=== PATIENT | male | born 1980 | race Caucasian/White ===

== ENCOUNTER 2016-11-21 23:34 | Emergency (ER) | payer OTHER, MEDICAID ==
[2016-11-22 00:02] VITALS: BP 117/75; BMI 23.7
[2016-11-22 00:26] LABS: BASOPHILS % (AUTO) 0.4 % (0.2-1.0); EOSINOPHILS # (AUTO) 0.3 x10^3/uL (0.0-0.2); HEMOGLOBIN 12.2 g/dL (13.5-18.0); LYMPHOCYTES # (AUTO) 1.4 X10^3/uL (1.3-2.9); LYMPHOCYTES % (AUTO) 18.7 % (21.0-51.0); MEAN CORPUSCULAR HEMOGLOBIN 35.3 pg (27.0-34.0); MEAN CORPUSCULAR HGB CONC 34.8 g/dL (33.0-35.0); MEAN CORPUSCULAR VOLUME 101.5 fL (80.0-100.0); MEAN PLATELET VOLUME 9.2 fL (7.4-11.0); MONOCYTES # (AUTO) 0.5 x10^3/uL (0.3-0.8); MONOCYTES % (AUTO) 6.6 % (0.0-13.0); NEUTROPHILS # (AUTO) 5.1 x10^3/uL (2.2-4.8); NEUTROPHILS % (AUTO) 70.3 % (42.0-75.0); PLATELET COUNT 114 X10^3/uL (150.0-450.0); RED BLOOD COUNT 3.44 X10^6/uL (4.7-6.0); RED CELL DISTRIBUTION WIDTH 12.9 % (11.6-16.5); WHITE BLOOD COUNT 7.3 X10^3/uL (3.6-10.0)
--- NOTE | 2016-11-22 00:27 | DR.GENAD ---
HPI - PCP Primary Care Physician: nfd - Complaint/Symptoms Chief Complaint Doctors Comments: Mother relates finding patient slumped over his rocking chair unresponsive about five hours ago. States she and his ex- could not wake him after multiple attempts of shaking and slapping him he would not respond and his ex- said he has a small seizure and they called EMS. EMS states patient was unresponsive in his chair with O2 sat 38 then wento 48 on oxygen with agonal breathing about six times per minute. Mother told them she thought he had drank a fifth liquor and took xanax with cocaine today. States patient with labored respiration when they wer loading him and they put an oral airway the ET tube was placed and they gave him Narcan 4mg via ET and he became more responsive and was gagging on the ET tube and they pulled the tube because they thought he was going to start vomiting. Patient has been alert since. Patient states he was grilling out today and having a good day. States he stopped taking his neurontin over a year ago and he smoked a couple of joints and drink 3-4 beers today. States he is a patient of Dr. anirudh Smith in [place]. He denies chest pain or SOB. Chief Complaint:: possible overdose. - Nurses notes reviewed Nurses Notes Review: Yes - Source History Provided: Patient, Family Member, EMS - Mode of Arrival Mode of Arrival: Ambulatory - Timing Onset of Chief Complaint: 11/21/16 Came on: Gradually - Duration Duration: Constant How lon Duration: Hours - Location Location: patient unresponsive at home - Severity Severity: Severe - Modifying Factors Worsens:: nothing Improves:: nothing PMH - PMH Past Medical History: Yes Past Medical History: Anxiety, Depression, Diabetes, GERD, Hypertension, Liver Disease, [place], Seizures Past Surgical History: Yes Surgical History: Angioplasty/Stents, Ortho Surgery - Family History History of Family Medical Conditions: Yes Family Medical History: Diabetes Mellitus, Cancer, Coronary Artery Disease, Heart Failure, Hypertension - Social History Does patient currently use any type of tobacco product: No Have you used tobacco products in the last 12 months: No Type of Tobacco Use: None Does any household member use tobacco: No Alcohol Use: None Do you use any recreational Drugs:: No Lives With: Family Lives Where: Home - infectious screening In the last 2 months have you had wt loss of >10#?: NO Have you had fever, night sweats or hemotysis?: No Have you traveled outside the country in the last 6 months?: No Isolation: Standard ROS - Review of Systems Constitutional: No Symptoms Reported, Weakness Eyes: No Symptoms Reported ENTM: No Symptoms Reported, Mouth Pain Respiratoy: No Symptoms Reported. negative: See HPI, Productive Cough, Non- Productive Cough, Moist Cough, Dry Cough, Hacking Cough, Barking Cough, Brassy Cough, Orthopnea, Short of Breath, Stridor, Wheezing, Hemoptysis, Other Cardiovascular: No Symptoms Reported. negative: See HPI, Chest Pain, Edema, Palpitations, Syncope, Cyanosis, Skin Mottling, Other Gastrointestinal/Abdominal: No Symptoms Reported. negative: See HPI, Abdominal Pain, Constipation, Diarrhea, Nausea, Vomiting, Food Intolerance, Other Genitourinary: No Symptoms Reported Neurological: No Symptoms Reported, Seizure Musculoskeletal: No Symptoms Reported Integumentary: No Symptoms Reported Hematologic/Lymphatic: No Symptoms Reported. negative: See HPI, Anemia, Blood Clots, Easy Bleeding, Easy Bruising, Swollen Glands, Lymphadenopathy, Other Endocrine: No Symptoms Reported Psychiatric: No Symptoms Reported PE - Vital Signs Vitals: Temperature 98.3 F Pulse Rate 92 Respiratory Rate 17 Blood Pressure [Left Arm] 111/65 Blood Pressure 117/75 O2 Sat by Pulse Oximetry 100 - General Limitations: No Limitations General Appearance: Alert, In No Apparent Distress - Head Head Exam: Normal Inspection, Atraumatic, Normocephalic - Eyes Eye exam: Normal Appearance, PERRL, EOMI. negative: Scleral Icterus, Conjunctival Injection, Nystagmus, Miosis, Mydrasis, Periorbital Swelling, Periorbital Tenderness, Other - ENT ENT Exam: Normal Exam, Normal Oropharynx, Normal External Ear Exam, Mucous Membranes Moist, TM's Normal Bilaterally External Ear Exam: Normal External Inspection TM/Canal Exam: Bilateral Normal Nose Exam: Normal Nose Exam Mouth Exam: Normal Inspection Throat Exam: Normal Inspection - Neck Neck Exam: Normal Inspection, Full ROM, Trachea Midline - Chest Chest Inspection: Normal Inspection, Symmetric Chest Wall Rise - Respiratory Respiratory Exam: Normal Lung Sounds Bilat Respiratory Exam: Bilateral Clear to Auscultation - Cardiovascular Cardiovascular Exam: Regular Rate, Normal Rhythm, Normal Heart Sounds - Abdominal Exam Abdominal Exam: Normal Inspection, Normal Bowel Sounds, Soft Abdominal Tenderness: negative: RUQ, RLQ, LUQ, LLQ, Epigastrium, Suprapubic, Diffuse, Mild, Moderate, Severe, Other - Extremities Extremities Exam: Normal Inspection, Full ROM, Normal Capillary Refill. negative: Tenderness, Edema, Joint Swelling, Calf Tenderness, Other - Back Back Exam: Normal Inspection, Full ROM. negative: Tenderness, (R) CVA Tenderness, (L) CVA Tenderness, Muscle Spasm, Paraspinal Tenderness, Vertebral Tenderness, Rashes, (R) Sciatic Notch Tenderness, (L) Sciatic Notch Tendern, (R ) Straight Leg Raise, (L) Straight Leg Raise, Other - Neurologic Neurological Exam: Alert, Oriented X3, CN II-XII Intact, Reflexes Normal. negative: Normal Gait (gait not tested) - Psychiatric Psychiatric Exam: Normal Affect, Normal Mood. negative: Depressed, Agitated, Anxious, Flat Affect, Manic, Homicidal Ideation, Suicidal Ideation, Other - Skin Skin Exam: Warm, Dry, Intact, Normal Color Course - Reevaluation 1st: Improved 3rd: Improved (0120 patient states he is fine and he is signing to go home. States if he he wants to in his own bed.) - Consultation Called: 00:55 Call Returned: 00:55 (Dr. Cooper to admit to OBS) - Education/Counseling Education/Counseling: Patient, Family Educated On: Treatment, Diagnosis, Prognosis, Needs for Follow Up ROR - Labs Reviewed Laboratory Results Reviewed?: Yes (all labs and x-rays result not complete. Patient sign AMA and left the hosp) Result Diagrams: 11/21/16 23:50 11/21/16 23:50 Laboratory: WBC 7.3 X10^3/uL (3.6-10.0) 11/21/16 23:50 RBC 3.44 X10^6/uL (4.7-6.0) L 11/21/16 23:50 Hgb 12.2 g/dL (13.5-18.0) L 11/21/16 23:50 Hct 35.0 % (42.0-54.0) L 11/21/16 23:50 MCV 101.5 fL (80.0-100.0) H 11/21/16 23:50 MCH 35.3 pg (27.0-34.0) H 11/21/16 23:50 MCHC 34.8 g/dL (33.0-35.0) 11/21/16 23:50 RDW 12.9 % (11.6-16.5) 11/21/16 23:50 Plt Count 114 X10^3/uL (150.0-450.0) L 11/21/16 23:50 MPV 9.2 fL (7.4-11.0) 11/21/16 23:50 Neut % 70.3 % (42.0-75.0) 11/21/16 23:50 Lymph % 18.7 % (21.0-51.0) L 11/21/16 23:50 [place] % 6.6 % (0.0-13.0) 11/21/16 23:50 Eos % 4.0 % (0.9-2.9) H 11/21/16 23:50 Baso % 0.4 % (0.2-1.0) 11/21/16 23:50 Neut # 5.1 x10^3/uL (2.2-4.8) H 11/21/16 23:50 Lymph # 1.4 X10^3/uL (1.3-2.9) 11/21/16 23:50 [place] # 0.5 x10^3/uL (0.3-0.8) 11/21/16 23:50 Eos # 0.3 x10^3/uL (0.0-0.2) H 11/21/16 23:50 Baso # 0.0 X10^3/uL (0.0-0.1) 11/21/16 23:50 Absolute Nucleated RBC 0.0 /100WBC 11/21/16 23:50 INR Target Range - 11/21/16 23:50 INR 1.07 (0.8-1.3) 11/21/16 23:50 PTT 29.2 SECONDS (22.9-36.5) 11/21/16 23:50 PTT Comment - 11/21/16 23:50 D-Dimer 210 ng/mL (0-400) 11/21/16 23:50 Sodium 144 mmol/L (136-145) 11/21/16 23:50 Corrected Sodium 144 mmol/L (136-145) 11/21/16 23:50 Potassium 3.1 mmol/L (3.5-5.1) L 11/21/16 23:50 Chloride 110 mmol/L (98-107) H 11/21/16 23:50 Carbon Dioxide 26.2 mmol/L (21-32) 11/21/16 23:50 BUN 10 mg/dL (7-18) 11/21/16 23:50 Creatinine 0.92 mg/dL (0.70-1.30) 11/21/16 23:50 Est GFR (MDRD) Af Amer > 60 (>60) 11/21/16 23:50 Est GFR (MDRD) Non-Af > 60 (>60) 11/21/16 23:50 Glucose 113 mg/dL (65-99) H 11/21/16 23:50 Calcium 6.7 mg/dL (8.5-10.1) L 11/21/16 23:50 Corrected Calcium 7.5 mg/dL (8.5-10.1) L 11/21/16 23:50 Magnesium 1.6 mg/dL (1.7-2.9) L 11/21/16 23:50 Total Bilirubin 0.20 mg/dL (0.2-1.0) 11/21/16 23:50 AST 48 Units/L (15-37) H 11/21/16 23:50 ALT 55 Units/L (12-78) 11/21/16 23:50 Alkaline Phosphatase 64 Units/L (46-116) 11/21/16 23:50 Creatine Kinase 61 Units/L (39-308) 11/21/16 23:50 CK-MB (CK-2) < 1.0 ng/mL (0-4.0) 11/21/16 23:50 CK/CKMB % Calc 1.6 % (<4) 11/21/16 23:50 Troponin I < 0.02 ng/mL (0-1.5) 11/21/16 23:50 Total Protein 5.9 g/dL (6.4-8.2) L 11/21/16 23:50 Albumin 3.0 g/dL (3.4-5.0) L 11/21/16 23:50 Globulin 2.9 g/dL (2.5-4.5) 11/21/16 23:50 Albumin/Globulin Ratio 1.0 Ratio (1.1-2.1) L 11/21/16 23:50 Ethyl Alcohol mg/dL 229 mg/dL (0-19.9) H 11/21/16 23:50 - XRAY XRAY Interpreted by: Radiologist (CT head: No acute intracranial abnormality) - EKG Rate: 85 Bow: Normal Rhythm: NSR Block: None Hypertrophy: LAE ST: Nonsp - Diagnosis Discharge Problem: Altered mental state, Drug overdose, multiple drugs, Hypoxemia, Respiratory distress, Alcohol intoxication, Hypokalemia, Seizure disorder - Discharge Plan Disposition: 07 AGAINST MEDICAL ADVICE Condition: Stable - Follow ups/Referrals Follow ups/Referrals: ANIRUDH SMITH [Primary Care Provider] - 3 days - Instructions
[2016-11-22 00:45] LABS: ALANINE AMINOTRANSFERASE 55 Units/L (12-78); ALKALINE PHOSPHATASE 64 Units/L (46-116); ASPARTATE AMINO TRANSFERASE 48 Units/L (15-37); BLOOD UREA NITROGEN 10 mg/dL (7-18); CALCIUM 6.7 mg/dL (8.5-10.1); CARBON DIOXIDE 26.2 mmol/L (21-32); CHLORIDE 110 mmol/L (98-107); CKMB % 1.6 % (<4); COR CA(FOR HYPOALB) 7.5 mg/dL (8.5-10.1); COR NA(FOR HYPERGLY) 144 mmol/L (136-145); CREATINE KINASE 61 Units/L (39-308); CREATINE KINASE MB < 1.0 ng/mL (0-4.0); CREATININE 0.92 mg/dL (0.70-1.30); GLUCOSE 113 mg/dL (65-99); MAGNESIUM 1.6 mg/dL (1.7-2.9); SODIUM 144 mmol/L (136-145); TOTAL PROTEIN 5.9 g/dL (6.4-8.2); TROPONIN I < 0.02 ng/mL (0-1.5); eGFR BLACK RACES > 60 (>60); eGFR NON BLACK RACES > 60 (>60)
[2016-11-22 00:58] LABS: D DIMER 210 ng/mL (0-400)
[2016-11-22] MEDS ORDERED: NS 1000 ML 1,000 ML with THIAMINE HCL INJ 100 MG, MAGNESIUM SULFATE 50% INJ 1 GM, MVI I... IV SCH ×5 (01:00)
[2016-11-22] MEDS ORDERED: NS 1000 ML 1,000 ML IV SCH (01:00)
[2016-11-22] MEDS ORDERED: K-DUR TAB 20 MEQ PO ONE (01:20)
--- NOTE | 2016-11-22 01:20 | CT ---
CT head without contrast Indication: Unresponsive, history of seizure Comparison: 04/21/2015 Technique: CT images of the head were obtained without contrast. Automatic exposure control was util ized. Findings: There is no acute bleed, generalized or focal edema, or abnormal extra-axial collection. T he ventricles are nondilated. No acute skeletal abnormality identified. There is mild mucosal thicke alek of the ethmoid air cells. The remaining visualized paranasal sinuses and mastoid air cells are clear. Impression: No acute intracranial abnormality. Mild ethmoid sinusitis. Reported By:
[2016-11-22] MEDS ORDERED: K-DUR TAB 20 MEQ PO SCH ×2 (01:21→09:00)
--- NOTE | 2016-11-22 03:01 | RAD ---
Chest, one view Indication: Unresponsive Comparison 09/08/2015 Findings: Cardiac silhouette size is within normal limits for technique. The lungs are clear without focal infiltrates, pleural effusion, or pneumothorax. The bony thorax is unremarkable. Impression: No acute cardiopulmonary abnormality. Reported By:
== END 2016-11-22 01:30 | disposition left against medical advice (07) ==
LOC: ER 23:34
DX: R41.82 Altered mental status, unspecified (principal); T50.901A Poisoning by unspecified drugs, medicaments and biological substances, accidental (unintentional), initial encounter; R09.02 Hypoxemia; R06.00 Dyspnea, unspecified; F10.129 Alcohol abuse with intoxication, unspecified; E87.6 Hypokalemia; G40.909 Epilepsy, unspecified, not intractable, without status epilepticus
CPT/HCPCS: 36415; 70450; 71010; 80053; 80320; 82550; 82553; 83735; 84484; 85025; 85378; 85610; 85730; 93005; 93010; 96365; 99283; A4222; G6040; J2560; J3411; J3475

== ENCOUNTER 2017-03-12 10:57 | Emergency (ER) | payer OTHER, MEDICAID ==
[2017-03-12 11:12] VITALS: BP 147/92; BMI 24.9
[2017-03-12] MEDS ORDERED: ZOFRAN INJ 4 MG VIAL IVP ONE (11:14)
[2017-03-12] MEDS ORDERED: NS 1000 ML 1,000 ML IV ONE ×2 (11:14→12:32)
[2017-03-12] MEDS ORDERED: NS 1000 ML 1,000 ML ONE ×2 (11:15→12:34)
[2017-03-12] MEDS ORDERED: ZOFRAN INJ 4 MG VIAL ONE (11:15)
[2017-03-12] MEDS ORDERED: TORADOL 30 MG VIAL IVP ONE (11:21)
[2017-03-12] MEDS ORDERED: TORADOL 30 MG VIAL ONE (11:22)
--- NOTE | 2017-03-12 11:22 | DR.GENAD ---
HPI - PCP Primary Care Physician: angeline - Complaint/Symptoms Chief Complaint Doctors Comments: Patient presents with complaint of nausea and vomiting since this morning; onset at 0300. He denies fever or diarrhea. He admits to stomach pain 8/10, sharp, intermittent. Denies alcohol but admits to cigarettes. Chief Complaint:: pt c/o vomiting since 3 am this morning weak - Source History Provided: Patient - Mode of Arrival Mode of Arrival: Ambulatory - Timing Onset of Chief Complaint: 03/12/17 PMH - PMH Past Medical History: Yes Past Medical History: Anxiety, Coronary Artery Disease, Depression, GERD, Hypertension, [place], Seizures Past Surgical History: Yes Surgical History: Angioplasty/Stents, CABG/Valve Surgery, Ortho Surgery - Family History History of Family Medical Conditions: Yes Family Medical History: Diabetes Mellitus, Cancer, Coronary Artery Disease, Heart Failure, Hypertension - Social History Type of Tobacco Use: Cigarettes Does any household member use tobacco: Yes Alcohol Use: Occasionally Do you use any recreational Drugs:: Yes (thc) Lives With: Family Lives Where: Home - infectious screening In the last 2 months have you had wt loss of >10#?: NO Have you had fever, night sweats or hemotysis?: No Have you traveled outside the country in the last 6 months?: No Isolation: Standard ROS - Review of Systems Eyes: No Symptoms Reported ENTM: No Symptoms Reported Respiratoy: No Symptoms Reported Cardiovascular: No Symptoms Reported Gastrointestinal/Abdominal: Abdominal Pain, Nausea, Vomiting Genitourinary: No Symptoms Reported Neurological: No Symptoms Reported Musculoskeletal: No Symptoms Reported Integumentary: No Symptoms Reported Hematologic/Lymphatic: No Symptoms Reported Endocrine: No Symptoms Reported Psychiatric: No Symptoms Reported All Other Systems: Reviewed and Negative PE - Vital Signs Vitals: Temperature 98.4 F Pulse Rate 62 Respiratory Rate 18 Blood Pressure [Left Arm] 111/65 Blood Pressure 147/92 O2 Sat by Pulse Oximetry 99 - General Limitations: No Limitations General Appearance: Alert, Anxious - Head Head Exam: Normal Inspection, Atraumatic - Eyes Eye exam: Normal Appearance, PERRL, EOMI - ENT ENT Exam: Mucous Membranes Dry (prolong cap refill) External Ear Exam: Normal External Inspection TM/Canal Exam: Bilateral Normal Nose Exam: Normal Nose Exam Mouth Exam: Normal Inspection Throat Exam: Normal Inspection - Neck Neck Exam: Normal Inspection, Full ROM - Chest Chest Inspection: Normal Inspection - Respiratory Respiratory Exam: Bilateral Clear to Auscultation - Cardiovascular Cardiovascular Exam: Regular Rate, Normal Rhythm - Abdominal Exam Abdominal Exam: Normal Inspection, Normal Bowel Sounds Abdominal Tenderness: negative: RUQ, RLQ, LUQ, LLQ, Epigastrium, Suprapubic, Diffuse, Mild, Moderate, Severe, Other - Extremities Extremities Exam: Normal Inspection, Full ROM. negative: Normal Capillary Refill (prolonged) - Back Back Exam: Normal Inspection - Neurologic Neurological Exam: Alert, Oriented X3, CN II-XII Intact - Psychiatric Psychiatric Exam: Normal Affect - Skin Skin Exam: Warm, Dry, Intact Course - Reevaluation 1st: Improved ROR - Labs Reviewed Result Diagrams: 03/12/17 11:30 03/12/17 11:30 Laboratory: WBC 6.9 X10^3/uL (3.6-10.0) 03/12/17 11:30 RBC 4.80 X10^6/uL (4.7-6.0) 03/12/17 11:30 Hgb 16.4 g/dL (13.5-18.0) 03/12/17 11:30 Hct 47.4 % (42.0-54.0) 03/12/17 11:30 MCV 98.7 fL (80.0-100.0) 03/12/17 11:30 MCH 34.2 pg (27.0-34.0) H 03/12/17 11:30 MCHC 34.6 g/dL (33.0-35.0) 03/12/17 11:30 RDW 14.0 % (11.6-16.5) 03/12/17 11:30 Plt Count 127 X10^3/uL (150.0-450.0) L 03/12/17 11:30 MPV 10.0 fL (7.4-11.0) 03/12/17 11:30 Neut % 76.9 % (42.0-75.0) H 03/12/17 11:30 Lymph % 15.7 % (21.0-51.0) L 03/12/17 11:30 [place] % 6.6 % (0.0-13.0) 03/12/17 11:30 Eos % 0.3 % (0.9-2.9) L 03/12/17 11:30 Baso % 0.5 % (0.2-1.0) 03/12/17 11:30 Neut # 5.3 x10^3/uL (2.2-4.8) H 03/12/17 11:30 Lymph # 1.1 X10^3/uL (1.3-2.9) L 03/12/17 11:30 [place] # 0.5 x10^3/uL (0.3-0.8) 03/12/17 11:30 Eos # 0.0 x10^3/uL (0.0-0.2) 03/12/17 11:30 Baso # 0.0 X10^3/uL (0.0-0.1) 03/12/17 11:30 Absolute Nucleated RBC 0.1 /100WBC 03/12/17 11:30 Sodium 141 mmol/L (136-145) 03/12/17 11:30 Corrected Sodium 142 mmol/L (136-145) 03/12/17 11:30 Potassium 4.0 mmol/L (3.5-5.1) 03/12/17 11:30 Chloride 105 mmol/L (98-107) 03/12/17 11:30 Carbon Dioxide 22.6 mmol/L (21-32) 03/12/17 11:30 BUN 6 mg/dL (7-18) L 03/12/17 11:30 Creatinine 0.92 mg/dL (0.70-1.30) 03/12/17 11:30 Est GFR (MDRD) Af Amer > 60 (>60) 03/12/17 11:30 Est GFR (MDRD) Non-Af > 60 (>60) 03/12/17 11:30 Glucose 156 mg/dL (65-99) H 03/12/17 11:30 Calcium 9.2 mg/dL (8.5-10.1) 03/12/17 11:30 Corrected Calcium TNP 03/12/17 11:30 Total Bilirubin 0.80 mg/dL (0.2-1.0) 03/12/17 11:30 AST 34 Units/L (15-37) 03/12/17 11:30 ALT 36 Units/L (12-78) 03/12/17 11:30 Alkaline Phosphatase 110 Units/L (46-116) 03/12/17 11:30 Total Protein 7.4 g/dL (6.4-8.2) 03/12/17 11:30 Albumin 3.9 g/dL (3.4-5.0) 03/12/17 11:30 Globulin 3.5 g/dL (2.5-4.5) 03/12/17 11:30 Albumin/Globulin Ratio 1.1 Ratio (1.1-2.1) 03/12/17 11:30 Lipase 139 Units/L (73-393) 03/12/17 11:30 Streptococcus Screen Negative (NEGATIVE) 03/12/17 11:39 - Diagnosis Discharge Problem: Nausea & vomiting Qualifiers: Vomiting type: unspecified Vomiting Intractability: non-intractable Qualified Code(s): R11.2 - Nausea with vomiting, unspecified - Discharge Plan Condition: Stable - Follow ups/Referrals Follow ups/Referrals: ANIRUDH SMITH [Primary Care Provider] - 3 days - Instructions
[2017-03-12 11:49] LABS: BASOPHILS % (AUTO) 0.5 % (0.2-1.0); EOSINOPHILS % (AUTO) 0.3 % (0.9-2.9); HEMATOCRIT 47.4 % (42.0-54.0); HEMOGLOBIN 16.4 g/dL (13.5-18.0); LYMPHOCYTES # (AUTO) 1.1 X10^3/uL (1.3-2.9); LYMPHOCYTES % (AUTO) 15.7 % (21.0-51.0); MEAN CORPUSCULAR HEMOGLOBIN 34.2 pg (27.0-34.0); MEAN CORPUSCULAR HGB CONC 34.6 g/dL (33.0-35.0); MEAN CORPUSCULAR VOLUME 98.7 fL (80.0-100.0); MONOCYTES # (AUTO) 0.5 x10^3/uL (0.3-0.8); MONOCYTES % (AUTO) 6.6 % (0.0-13.0); NEUTROPHILS # (AUTO) 5.3 x10^3/uL (2.2-4.8); NEUTROPHILS % (AUTO) 76.9 % (42.0-75.0); PLATELET COUNT 127 X10^3/uL (150.0-450.0); WHITE BLOOD COUNT 6.9 X10^3/uL (3.6-10.0)
[2017-03-12] MEDS ORDERED: PHENERGAN INJ 25 MG IV ONE (12:32)
[2017-03-12] MEDS ORDERED: PHENERGAN INJ 25 MG ONE (12:34)
[2017-03-12 12:52] LABS: ALANINE AMINOTRANSFERASE 36 Units/L (12-78); ALBUMIN 3.9 g/dL (3.4-5.0); ALKALINE PHOSPHATASE 110 Units/L (46-116); ASPARTATE AMINO TRANSFERASE 34 Units/L (15-37); BLOOD UREA NITROGEN 6 mg/dL (7-18); CARBON DIOXIDE 22.6 mmol/L (21-32); CHLORIDE 105 mmol/L (98-107); COR NA(FOR HYPERGLY) 142 mmol/L (136-145); CREATININE 0.92 mg/dL (0.70-1.30); SODIUM 141 mmol/L (136-145); TOTAL PROTEIN 7.4 g/dL (6.4-8.2); eGFR BLACK RACES > 60 (>60); eGFR NON BLACK RACES > 60 (>60)
[2017-03-12 12:57] LABS: CALCIUM 9.2 mg/dL (8.5-10.1)
== END 2017-03-12 14:00 | disposition home or self-care (01) ==
LOC: ER 11:08
DX: R11.2 Nausea with vomiting, unspecified (principal)
CPT/HCPCS: 36415; 80053; 83690; 85025; 87070; 87880; 96365; 96367; 96374; 96375; 99282; 99283; A4222; J1885; J2405; J2550

== ENCOUNTER 2017-04-11 21:12 | Emergency (ER) | payer OTHER, MEDICAID ==
[2017-04-11] MEDS ORDERED: DUONEB 0.5 MG/3 MG ONE ×3 (21:24→22:42)
[2017-04-11 21:27] VITALS: BP 120/89; BMI 23.6
[2017-04-11] MEDS ORDERED: DUONEB 0.5 MG/3 MG NEB STA (21:27)
--- NOTE | 2017-04-11 21:45 | RAD ---
HISTORY: Congestion Study: Single view of the chest. Comparison: 11/22/2016 Findings: The cardiomediastinal silhouette is normal. No focal consolidations, pleural effusions or pneumothora x. Osseous structures demonstrate no acute abnormality. IMPRESSION: 1. No acute cardiopulmonary process. Reported By:
[2017-04-11] MEDS ORDERED: SOLU-Medrol 125 MG VIAL IVP ONE (21:46)
[2017-04-11] MEDS ORDERED: NS 1000 ML 1,000 ML ONE (21:51)
[2017-04-11] MEDS ORDERED: SOLU-Medrol 125 MG VIAL ONE ×2 (21:51→21:53)
[2017-04-11 21:58] LABS: BASOPHILS # (AUTO) 0.1 X10^3/uL (0.0-0.1); BASOPHILS % (AUTO) 0.4 % (0.2-1.0); EOSINOPHILS # (AUTO) 0.8 x10^3/uL (0.0-0.2); EOSINOPHILS % (AUTO) 6.3 % (0.9-2.9); HEMATOCRIT 51.1 % (42.0-54.0); HEMOGLOBIN 17.9 g/dL (13.5-18.0); LYMPHOCYTES # (AUTO) 1.7 X10^3/uL (1.3-2.9); LYMPHOCYTES % (AUTO) 12.7 % (21.0-51.0); MEAN CORPUSCULAR HEMOGLOBIN 33.5 pg (27.0-34.0); MEAN CORPUSCULAR HGB CONC 35.1 g/dL (33.0-35.0); MEAN CORPUSCULAR VOLUME 95.4 fL (80.0-100.0); MONOCYTES # (AUTO) 0.9 x10^3/uL (0.3-0.8); MONOCYTES % (AUTO) 6.8 % (0.0-13.0); NEUTROPHILS # (AUTO) 9.8 x10^3/uL (2.2-4.8); NEUTROPHILS % (AUTO) 73.8 % (42.0-75.0); PLATELET COUNT 200 X10^3/uL (150.0-450.0); RED BLOOD COUNT 5.35 X10^6/uL (4.7-6.0); WHITE BLOOD COUNT 13.2 X10^3/uL (3.6-10.0)
[2017-04-11] MEDS ORDERED: NS 1000 ML 1,000 ML IV SCH (22:00)
--- NOTE | 2017-04-11 22:02 | DR.GENAD ---
HPI - PCP Primary Care Physician: SARAH - Complaint/Symptoms Chief Complaint Doctors Comments: Patient with a history of asthma admits to dyspnea today has oxygen at home. He admits to a non productive cough and congestion. Chief Complaint:: BREATHING TROUBLE; CONGESTION; NONPRODUCTIVE COUGH; FEVER; CAN 'T CATCH BREATH; Self Treatment fo Chief Complaint: HOME O2; NC 2L - Source History Provided: Patient - Mode of Arrival Mode of Arrival: Ambulatory - Timing Onset of Chief Complaint: 04/09/17 PMH - PMH Past Medical History: Yes Past Medical History: COPD, Coronary Artery Disease, [place] Past Surgical History: Yes Surgical History: Ortho Surgery Past Surgical History Comment: STENT X 4 - Family History History of Family Medical Conditions: No Family Medical History: Diabetes Mellitus, Cancer, Coronary Artery Disease, Heart Failure, Hypertension - Social History Do you use any recreational Drugs:: Yes (thc) Lives With: Alone Lives Where: Home - infectious screening In the last 2 months have you had wt loss of >10#?: NO Have you had fever, night sweats or hemotysis?: No Have you traveled outside the country in the last 6 months?: No Isolation: Standard ROS - Review of Systems ENTM: No Symptoms Reported Respiratoy: Short of Breath, Wheezing Cardiovascular: No Symptoms Reported Gastrointestinal/Abdominal: No Symptoms Reported Genitourinary: No Symptoms Reported Neurological: No Symptoms Reported Musculoskeletal: No Symptoms Reported Integumentary: No Symptoms Reported Hematologic/Lymphatic: No Symptoms Reported Endocrine: No Symptoms Reported Psychiatric: No Symptoms Reported All Other Systems: Reviewed and Negative PE - Vital Signs Vitals: Temperature 98.0 F Pulse Rate 97 Respiratory Rate 22 Blood Pressure [Left Arm] 111/65 Blood Pressure 120/89 O2 Sat by Pulse Oximetry 86 - General Limitations: No Limitations General Appearance: Alert, In No Apparent Distress - Head Head Exam: Normal Inspection, Atraumatic - Eyes Eye exam: Normal Appearance, PERRL, EOMI - ENT ENT Exam: Normal Exam External Ear Exam: Normal External Inspection TM/Canal Exam: Bilateral Normal Nose Exam: Normal Nose Exam Mouth Exam: Normal Inspection Throat Exam: Normal Inspection - Neck Neck Exam: Normal Inspection, Full ROM - Chest Chest Inspection: Normal Inspection - Respiratory Respiratory Exam: Normal Lung Sounds Bilat Respiratory Exam: Bilateral Wheezing (inspiratory/expiratory) - Cardiovascular Cardiovascular Exam: Regular Rate, Normal Rhythm - Abdominal Exam Abdominal Exam: Normal Inspection, Normal Bowel Sounds Abdominal Tenderness: negative: RUQ, RLQ, LUQ, LLQ, Epigastrium, Suprapubic, Diffuse, Mild, Moderate, Severe, Other - Extremities Extremities Exam: Normal Inspection, Full ROM - Back Back Exam: Normal Inspection - Neurologic Neurological Exam: Alert, Oriented X3, CN II-XII Intact - Psychiatric Psychiatric Exam: Normal Affect Course - Treatment Treatment: Duo Nebs x 3; mag sulfate 1gm - Reevaluation 1st: Improved ROR - Labs Reviewed Laboratory Results Reviewed?: Yes (ABG 7.56;pco2 56;p 02 47 (RA)) Result Diagrams: 04/11/17 21:45 04/11/17 21:45 Laboratory: WBC 13.2 X10^3/uL (3.6-10.0) H 04/11/17 21:45 RBC 5.35 X10^6/uL (4.7-6.0) 04/11/17 21:45 Hgb 17.9 g/dL (13.5-18.0) 04/11/17 21:45 Hct 51.1 % (42.0-54.0) 04/11/17 21:45 MCV 95.4 fL (80.0-100.0) 04/11/17 21:45 MCH 33.5 pg (27.0-34.0) 04/11/17 21:45 MCHC 35.1 g/dL (33.0-35.0) H 04/11/17 21:45 RDW 14.0 % (11.6-16.5) 04/11/17 21:45 Plt Count 200 X10^3/uL (150.0-450.0) 04/11/17 21:45 MPV 9.0 fL (7.4-11.0) 04/11/17 21:45 Neut % 73.8 % (42.0-75.0) 04/11/17 21:45 Lymph % 12.7 % (21.0-51.0) L 04/11/17 21:45 [place] % 6.8 % (0.0-13.0) 04/11/17 21:45 Eos % 6.3 % (0.9-2.9) H 04/11/17 21:45 Baso % 0.4 % (0.2-1.0) 04/11/17 21:45 Neut # 9.8 x10^3/uL (2.2-4.8) H 04/11/17 21:45 Lymph # 1.7 X10^3/uL (1.3-2.9) 04/11/17 21:45 [place] # 0.9 x10^3/uL (0.3-0.8) H 04/11/17 21:45 Eos # 0.8 x10^3/uL (0.0-0.2) H 04/11/17 21:45 Baso # 0.1 X10^3/uL (0.0-0.1) 04/11/17 21:45 Absolute Nucleated RBC 0.0 /100WBC 04/11/17 21:45 D-Dimer 656 ng/mL (0-400) H* 04/11/17 21:45 Sodium 135 mmol/L (136-145) L 04/11/17 21:45 Corrected Sodium 136 mmol/L (136-145) 04/11/17 21:45 Potassium 4.5 mmol/L (3.5-5.1) 04/11/17 21:45 Chloride 97 mmol/L (98-107) L 04/11/17 21:45 Carbon Dioxide 29.4 mmol/L (21-32) 04/11/17 21:45 BUN 16 mg/dL (7-18) 04/11/17 21:45 Creatinine 0.88 mg/dL (0.70-1.30) 04/11/17 21:45 Est GFR (MDRD) Af Amer > 60 (>60) 04/11/17 21:45 Est GFR (MDRD) Non-Af > 60 (>60) 04/11/17 21:45 Glucose 124 mg/dL (65-99) H 04/11/17 21:45 Calcium 9.1 mg/dL (8.5-10.1) 04/11/17 21:45 Corrected Calcium TNP 04/11/17 21:45 Total Bilirubin 0.60 mg/dL (0.2-1.0) 04/11/17 21:45 AST 17 Units/L (15-37) 04/11/17 21:45 ALT 26 Units/L (12-78) 04/11/17 21:45 Alkaline Phosphatase 163 Units/L (46-116) H 04/11/17 21:45 C-Reactive Protein 23.80 mg/L (0-3.0) H 04/11/17 21:45 Total Protein 8.5 g/dL (6.4-8.2) H 04/11/17 21:45 Albumin 3.8 g/dL (3.4-5.0) 04/11/17 21:45 Globulin 4.7 g/dL (2.5-4.5) H 04/11/17 21:45 Albumin/Globulin Ratio 0.8 Ratio (1.1-2.1) L 04/11/17 21:45 Influenza Type A (PCR) Negative (NEGATIVE) 04/11/17 22:32 Influenza Type B (PCR) Negative (NEGATIVE) 04/11/17 22:32 - XRAY XRAY Interpreted by: Radiologist (Chest: The cardiomediastinal silhouette is normal. No focal consolidations, pleural effusions or pneumothorax. Osseous structures demonstrate no acute abnormality. Impression: No acute cardiopulmonary process.) XRAY Findings: Elevated D Dimer: No evidence for PTE - Diagnosis Discharge Problem: Acute asthma exacerbation Qualifiers: Asthma severity: moderate Asthma persistence: unspecified Qualified Code(s): J45.901 - Unspecified asthma with (acute) exacerbation - Discharge Plan Condition: Stable - Follow ups/Referrals Follow ups/Referrals: ANIRUDH SMITH [Primary Care Provider] - 3 days - Instructions
[2017-04-11 22:08] LABS: ALANINE AMINOTRANSFERASE 26 Units/L (12-78); ALBUMIN 3.8 g/dL (3.4-5.0); ALKALINE PHOSPHATASE 163 Units/L (46-116); ASPARTATE AMINO TRANSFERASE 17 Units/L (15-37); BLOOD UREA NITROGEN 16 mg/dL (7-18); CALCIUM 9.1 mg/dL (8.5-10.1); CARBON DIOXIDE 29.4 mmol/L (21-32); CHLORIDE 97 mmol/L (98-107); COR NA(FOR HYPERGLY) 136 mmol/L (136-145); CREATININE 0.88 mg/dL (0.70-1.30); SODIUM 135 mmol/L (136-145); TOTAL PROTEIN 8.5 g/dL (6.4-8.2); eGFR BLACK RACES > 60 (>60); eGFR NON BLACK RACES > 60 (>60)
[2017-04-11] MEDS ORDERED: DUONEB 0.5 MG/3 MG NEB SCH (22:45)
[2017-04-11] MEDS ORDERED: DUONEB 0.5 MG/3 MG NEB ONE (22:57)
[2017-04-11] MEDS ORDERED: NS 100 ML IV 100 ML IV ONE (23:41)
--- NOTE | 2017-04-12 00:32 | CT ---
CTA chest Indication: Shortness of breath, elevated D-dimer Comparison: None Technique: CT images of the chest were obtained with contrast. Automatic exposure control was utilize d. MIP images provided. Findings: The upper abdomen is grossly unremarkable. No acute skeletal abnormality is identified. The heart siz e is normal, without pericardial thickening or pericardial effusion. The thoracic aorta is grossly no rmal for technique. No pulmonary arterial filling defect is identified. No suspicious intrathoracic l ymph nodes are seen. Patchy lingular ground-glass opacities are noted. There is mild peribronchial th ickening, more prominent in the bases. No pleural effusion or pneumothorax. Impression: 1. Findings of bronchitis with lingular pneumonitis. 2. No evidence for PTE. Reported By:
[2017-04-12] MEDS ORDERED: MAGNESIUM SULFATE 1 GM/100 mL PREMIX 1 GM/100 ML BAG IV ONE (00:37)
[2017-04-12] MEDS ORDERED: NS 100 ML IV 100 ML IV ONE (00:39)
[2017-04-12] MEDS ORDERED: MAGNESIUM SULFATE 50% INJ ONE (00:39)
[2017-04-12 08:29] LABS: ABG BASE EXCESS 3.2 mmol/L (-2.0-2.0); ABG HCO3 30.2 mmol/L (22-26)
[2017-04-12 08:30] LABS: ABG ALLEN TEST POS; FRACTIONATED INSPIRED OXYGEN 21
== END 2017-04-12 02:32 | disposition home or self-care (01) ==
LOC: ER 21:12
DX: J45.901 Unspecified asthma with (acute) exacerbation (principal); R06.02 Shortness of breath
CPT/HCPCS: 36415; 36600; 71010; 71275; 80053; 82803; 85025; 85378; 86140; 87502; 96365; 96367; 96374; 96375; 99283; A4222; J2930; J3475; J7620

== ENCOUNTER 2017-04-22 09:54 | Emergency (ER) | payer OTHER, MEDICAID ==
[2017-04-22 10:01] VITALS: BP 111/82; BMI 23.6
[2017-04-22] MEDS ORDERED: DUONEB 0.5 MG/3 MG NEB ONE (10:17)
[2017-04-22] MEDS ORDERED: DECADRON JET NEB (RESP USE) NEB ONE (10:17)
[2017-04-22] MEDS ORDERED: DECADRON INJ ONE (10:19)
[2017-04-22] MEDS ORDERED: DUONEB 0.5 MG/3 MG ONE (10:19)
[2017-04-22 10:22] LABS: ABG BASE EXCESS 6.1 mmol/L (-2.0-2.0)
[2017-04-22 10:23] LABS: ABG ALLEN TEST POS; ABG HCO3 32.2 mmol/L (22-26)
--- NOTE | 2017-04-22 10:34 | DR.GENAD ---
HPI - PCP Primary Care Physician: ANIRUDH SMITH - Complaint/Symptoms Chief Complaint Doctors Comments: Patient presents with complaint of breathing problems. He has a history of respiratory problems on home oxygen 2.5Liters and nebs as needed, usually tid. He admits to continued cigarette smoking. He denies fever or sputum production. Patient states that he has not been diagnosed with COPD or asthma. He uses oxygen secondary to his sleep apnea. He has had stents placed two years ago. He states that he gets this feeling of not being able to breath at times. Chief Complaint:: PT WAS SEEN IN THE ER LAST WEEK FOR PROBLEMS BREATHING, COUGHING, FELLS LIKE HE IS DROWNING. PATIENT STATED HE HASNT BEEN ANY BETTER - Source History Provided: Patient - Mode of Arrival Mode of Arrival: Ambulatory - Timing Onset of Chief Complaint: 04/11/17 PMH - PMH Past Medical History: Yes Past Medical History: COPD, Coronary Artery Disease, [place] Past Surgical History: Yes Surgical History: Angioplasty/Stents, Ortho Surgery - Family History History of Family Medical Conditions: Yes Family Medical History: Diabetes Mellitus, Cancer, Coronary Artery Disease, Heart Failure, Hypertension - Social History Does patient currently use any type of tobacco product: Yes Have you used tobacco products in the last 12 months: Yes Type of Tobacco Use: Cigarettes How many years tobacco product used: 20 Does any household member use tobacco: Yes Alcohol Use: Rarely Do you use any recreational Drugs:: Yes (thc) Lives With: Family Lives Where: Home - infectious screening In the last 2 months have you had wt loss of >10#?: NO Have you had fever, night sweats or hemotysis?: No Have you traveled outside the country in the last 6 months?: No Isolation: Standard ROS - Review of Systems Eyes: No Symptoms Reported ENTM: No Symptoms Reported Respiratoy: Hacking Cough, Wheezing Cardiovascular: No Symptoms Reported Gastrointestinal/Abdominal: No Symptoms Reported Genitourinary: No Symptoms Reported Neurological: No Symptoms Reported Musculoskeletal: No Symptoms Reported Integumentary: No Symptoms Reported Hematologic/Lymphatic: No Symptoms Reported Endocrine: No Symptoms Reported Psychiatric: No Symptoms Reported All Other Systems: Reviewed and Negative PE - Vital Signs Vitals: Temperature 98.5 F Pulse Rate 114 Respiratory Rate 20 Blood Pressure [Left Arm] 111/65 Blood Pressure 111/82 O2 Sat by Pulse Oximetry 97 - General General Appearance: Alert, In No Apparent Distress - Head Head Exam: Normal Inspection, Atraumatic - Eyes Eye exam: Normal Appearance, PERRL, EOMI - ENT ENT Exam: Normal Exam External Ear Exam: Normal External Inspection TM/Canal Exam: Bilateral Normal Nose Exam: Normal Nose Exam Mouth Exam: Normal Inspection Throat Exam: Normal Inspection - Neck Neck Exam: Normal Inspection - Chest Chest Inspection: Normal Inspection - Respiratory Respiratory Exam: Prolonged Expiratory Phase (RUP posteriorally) Respiratory Exam: Bilateral Decreased Breath Sounds, Right Wheezing, Upper Wheezing - Cardiovascular Cardiovascular Exam: Regular Rate - Abdominal Exam Abdominal Exam: Normal Inspection, Normal Bowel Sounds Abdominal Tenderness: negative: RUQ, RLQ, LUQ, LLQ, Epigastrium, Suprapubic, Diffuse, Mild, Moderate, Severe, Other - Extremities Extremities Exam: Normal Inspection - Back Back Exam: Normal Inspection - Neurologic Neurological Exam: Alert, Oriented X3, CN II-XII Intact - Psychiatric Psychiatric Exam: Normal Affect - Skin Skin Exam: Warm, Dry, Intact Course - Treatment Treatment: Neb treatment, lungs cleared; hypoxia on room air. Has home oxygen on 2.5L - Reevaluation 1st: Improved ROR - Labs Reviewed Result Diagrams: 04/22/17 10:29 04/22/17 10:29 Laboratory: WBC 10.4 X10^3/uL (3.6-10.0) H 04/22/17 10:29 RBC 4.96 X10^6/uL (4.7-6.0) 04/22/17 10:29 Hgb 16.7 g/dL (13.5-18.0) 04/22/17 10:29 Hct 47.6 % (42.0-54.0) 04/22/17 10:29 MCV 96.0 fL (80.0-100.0) 04/22/17 10:29 MCH 33.6 pg (27.0-34.0) 04/22/17 10:29 MCHC 35.0 g/dL (33.0-35.0) 04/22/17 10:29 RDW 14.5 % (11.6-16.5) 04/22/17 10:29 Plt Count 240 X10^3/uL (150.0-450.0) 04/22/17 10:29 MPV 8.5 fL (7.4-11.0) 04/22/17 10:29 Neut % 49.8 % (42.0-75.0) 04/22/17 10: Lymph % 24.4 % (21.0-51.0) 04/22/17 10:29 Real % 7.4 % (0.0-13.0) 04/22/17 10:29 Eos % 17.7 % (0.9-2.9) H 04/22/17 10:29 Baso % 0.7 % (0.2-1.0) 04/22/17 10:29 Neut # 5.2 x10^3/uL (2.2-4.8) H 04/22/17 10: Lymph # 2.5 X10^3/uL (1.3-2.9) 04/22/17 10: Real # 0.8 x10^3/uL (0.3-0.8) 04/22/17 10: Eos # 1.8 x10^3/uL (0.0-0.2) H 04/22/17 10:29 Baso # 0.1 X10^3/uL (0.0-0.1) 04/22/17 10:29 Absolute Nucleated RBC 0.3 /100WBC 04/22/17 10:29 Sample Site Lrad 04/22/17 11:25 ABG pH 7.420 (7.35-7.45) 04/22/17 11:25 ABG pCO2 52.0 mmHg (35.0-45.0) H* 04/22/17 11:25 ABG pO2 47.0 mmHg (80.0-100.0) L* 04/22/17 11:25 ABG HCO3 33.7 mmol/L (22-26) H* 04/22/17 11:25 ABG O2 Saturation 83.0 % (90-100) L* 04/22/17 11:25 ABG Base Excess 7.8 mmol/L (-2.0-2.0) H 04/22/17 11:25 Xavi Test Pos 04/22/17 11:25 A-a Gradient 38.0 mmHg 04/22/17 11:25 FiO2 21.000 04/22/17 11:25 Blood Gas Comments Manjinder well ah 04/22/17 11:25 Sodium 138 mmol/L (136-145) 04/22/17 10:29 Corrected Sodium TNP 04/22/17 10:29 Potassium 4.5 mmol/L (3.5-5.1) 04/22/17 10:29 Chloride 97 mmol/L (98-107) L 04/22/17 10:29 Carbon Dioxide 33.2 mmol/L (21-32) H 04/22/17 10:29 BUN 7 mg/dL (7-18) 04/22/17 10:29 Creatinine 0.92 mg/dL (0.70-1.30) 04/22/17 10:29 Est GFR (MDRD) Af Amer > 60 (>60) 04/22/17 10:29 Est GFR (MDRD) Non-Af > 60 (>60) 04/22/17 10:29 Glucose 101 mg/dL (65-99) H 04/22/17 10:29 Calcium 9.3 mg/dL (8.5-10.1) 04/22/17 10:29 Corrected Calcium TNP 04/22/17 10:29 Total Bilirubin 0.50 mg/dL (0.2-1.0) 04/22/17 10:29 AST 27 Units/L (15-37) 04/22/17 10:29 ALT 35 Units/L (12-78) 04/22/17 10:29 Alkaline Phosphatase 139 Units/L (46-116) H 04/22/17 10:29 C-Reactive Protein 17.00 mg/L (0-3.0) H 04/22/17 10:29 Total Protein 8.3 g/dL (6.4-8.2) H 04/22/17 10:29 Albumin 3.6 g/dL (3.4-5.0) 04/22/17 10:29 Globulin 4.7 g/dL (2.5-4.5) H 04/22/17 10:29 Albumin/Globulin Ratio 0.8 Ratio (1.1-2.1) L 04/22/17 10:29 - XRAY XRAY Interpreted by: Radiologist (Chest: No acute chest abnormality) - Diagnosis Discharge Problem: COPD (chronic obstructive pulmonary disease) Qualifiers: COPD type: unspecified COPD Qualified Code(s): J44.9 - Chronic obstructive pulmonary disease, unspecified - Discharge Plan Condition: Stable - Follow ups/Referrals Follow ups/Referrals: ANIRUDH SMITH [Primary Care Provider] - 3 days - Instructions
[2017-04-22 10:35] LABS: BASOPHILS # (AUTO) 0.1 X10^3/uL (0.0-0.1); BASOPHILS % (AUTO) 0.7 % (0.2-1.0); EOSINOPHILS # (AUTO) 1.8 x10^3/uL (0.0-0.2); EOSINOPHILS % (AUTO) 17.7 % (0.9-2.9); HEMATOCRIT 47.6 % (42.0-54.0); HEMOGLOBIN 16.7 g/dL (13.5-18.0); LYMPHOCYTES # (AUTO) 2.5 X10^3/uL (1.3-2.9); LYMPHOCYTES % (AUTO) 24.4 % (21.0-51.0); MEAN CORPUSCULAR HEMOGLOBIN 33.6 pg (27.0-34.0); MEAN PLATELET VOLUME 8.5 fL (7.4-11.0); MONOCYTES # (AUTO) 0.8 x10^3/uL (0.3-0.8); MONOCYTES % (AUTO) 7.4 % (0.0-13.0); NEUTROPHILS # (AUTO) 5.2 x10^3/uL (2.2-4.8); NEUTROPHILS % (AUTO) 49.8 % (42.0-75.0); PLATELET COUNT 240 X10^3/uL (150.0-450.0); RED BLOOD COUNT 4.96 X10^6/uL (4.7-6.0); RED CELL DISTRIBUTION WIDTH 14.5 % (11.6-16.5); WHITE BLOOD COUNT 10.4 X10^3/uL (3.6-10.0)
[2017-04-22 10:46] LABS: ALANINE AMINOTRANSFERASE 35 Units/L (12-78); ALBUMIN 3.6 g/dL (3.4-5.0); ALKALINE PHOSPHATASE 139 Units/L (46-116); ASPARTATE AMINO TRANSFERASE 27 Units/L (15-37); BLOOD UREA NITROGEN 7 mg/dL (7-18); CALCIUM 9.3 mg/dL (8.5-10.1); CARBON DIOXIDE 33.2 mmol/L (21-32); CHLORIDE 97 mmol/L (98-107); CREATININE 0.92 mg/dL (0.70-1.30); SODIUM 138 mmol/L (136-145); TOTAL PROTEIN 8.3 g/dL (6.4-8.2); eGFR BLACK RACES > 60 (>60); eGFR NON BLACK RACES > 60 (>60)
--- NOTE | 2017-04-22 10:54 | RAD ---
Examination: Portable AP chest History: SOB Comparison 04/11/2017 Findings: Normal heart size with clear lungs and pleural spaces. Impression: No acute chest abnormality Reported By:
[2017-04-22 11:37] LABS: ABG BASE EXCESS 7.8 mmol/L (-2.0-2.0)
[2017-04-22 11:46] LABS: ABG HCO3 33.7 mmol/L (22-26)
[2017-04-22 11:47] LABS: ABG ALLEN TEST POS
== END 2017-04-22 12:18 | disposition home or self-care (01) ==
LOC: ER 10:14
DX: J44.9 Chronic obstructive pulmonary disease, unspecified (principal)
CPT/HCPCS: 36415; 36600; 71045; 80053; 82803; 85025; 86140; 99283; J1100; J7620

== ENCOUNTER 2017-06-09 09:33 | Emergency (ER) | payer OTHER, MEDICAID ==
[2017-06-09] MEDS ORDERED: NS 1000 ML 1,000 ML ONE ×2 (09:38→11:44)
[2017-06-09 09:52] VITALS: BMI 24.9
--- NOTE | 2017-06-09 09:55 | DR.N/VMALE ---
HPI - Time Seen Time seen: 09:45 - HPI Comment HPI Comment: PATIENT IS HAVING ABDOMINAL PAIN, N/V/D FOR PAST 3 DAYS. HE IS NOT HOLDING DOWN HIS MEDICATIONS AND FOOD. HE IS RUNNING FEVER AT HOME AND IS WEAK. - Complaints Chief Complaint Doctors Comments: N/V/D TIMES 3 DAYS. WEAKNESS. - Reviewed Nurses Notes Reviewed: Yes - Source History Provided: Patient, Family Member - Mode of Arrival Mode of Arrival: Stretcher - Context Onset: Spontaneous Recent: None History of: None - Quality Quality: Bilious - Associated Signs and Symptoms Abdominal Pain Quality: Cramping Abdominal Pain Location: Diffuse Symptoms: Abdominal Pain, Diarrhea, Anorexia, Fever (AT HOME.) PMH - PMH Past Medical History: COPD, Coronary Artery Disease, [place] Past Surgical History: Yes Surgical History: Angioplasty/Stents, Ortho Surgery - Family History Family Medical History: Diabetes Mellitus, Cancer, Coronary Artery Disease, Heart Failure, Hypertension - Social History Do you use any recreational Drugs:: Yes (thc) ROS - Review of Systems Constitutional: Weakness, Fatigue, Loss of Appetite Eyes: negative: Eye Pain, Discharge ENTM: negative: Ear Pain, Nose Discharge, Nose Congestion, Throat Pain Respiratoy: negative: Productive Cough, Short of Breath, Wheezing, Hemoptysis Cardiovascular: No Symptoms Reported. negative: Chest Pain Gastrointestinal/Abdominal: Abdominal Pain, Nausea, Vomiting Genitourinary: negative: Dysuria, Frequency, Hematuria Neurological: Weakness, Dizziness. negative: Headache Musculoskeletal: Muscle Pain Integumentary: Dryness Hematologic/Lymphatic: No Symptoms Reported Endocrine: No Symptoms Reported All Other Systems: Reviewed and Negative PE - Vital Signs Vitals: Temperature 98.4 F Pulse Rate [Right Brachial] 99 Pulse Rate 110 Respiratory Rate 22 Blood Pressure [Left Arm] 118/88 Blood Pressure 118/66 O2 Sat by Pulse Oximetry 100 - General Limitations: No Limitations General Appearance: Alert - Head Head Exam: Normal Inspection - Eyes Eye exam: Normal Appearance - ENT ENT Exam: Normal External Ear Exam - Neck Neck Exam: Trachea Midline - Chest Chest Inspection: Symmetric Chest Wall Rise - Respiratory Respiratory Exam: Normal Lung Sounds Bilat Respiratory Exam: Bilateral Clear to Auscultation - Cardiovascular Cardiovascular Exam: Regular Rate, Normal Rhythm, Normal Heart Sounds - Abdominal Exam Abdominal Exam: Normal Bowel Sounds, Soft Abdominal Tenderness: Diffuse, Moderate - Rectal Rectal Exam: Deferred - Exam: Male: Deferred - Extremities Extremities Exam: Normal Inspection - Back Back Exam: Normal Inspection - Neurologic Neurological Exam: Alert, Oriented X3 - Psychiatric Psychiatric Exam: Normal Affect, Normal Mood - Skin Skin Exam: Normal Color MDM - Additional Information Obtained Additional Information Obtained From: Family - Differential Diagnosis Differential Diagnosis: Considerations may Include:: Bowel Obstruction, Gastroenteritis, Pancreatitis, PUD, Urinary Tract Infection, Urolithiasis Course - Treatment Treatment: SEE ORDERS. - Consultation Consultation Comments: DISCUSS PATIENT WITH DR. GREER. HE WILL ADMIT PATIENT. - Education/Counseling Education/Counseling: Patient, Family, Education Educated On: Diagnosis ROR - Labs Reviewed Laboratory Results Reviewed?: Yes Result Diagrams: 06/10/17 06:20 06/10/17 06:23 Laboratory: 06/09/17 10:34 Stool - Final WBC 6.3 X10^3/uL (3.6-10.0) 06/10/17 06:20 RBC 4.10 X10^6/uL (4.7-6.0) L 06/10/17 06:20 Hgb 13.4 g/dL (13.5-18.0) L D 06/10/17 06:20 Hct 38.3 % (42.0-54.0) L 06/10/17 06:20 MCV 93.4 fL (80.0-100.0) 06/10/17 06:20 MCH 32.8 pg (27.0-34.0) 06/10/17 06:20 MCHC 35.1 g/dL (33.0-35.0) H 06/10/17 06:20 RDW 13.7 % (11.6-16.5) 06/10/17 06:20 Plt Count 117 X10^3/uL (150.0-450.0) L 06/10/17 06:20 MPV 10.2 fL (7.4-11.0) 06/10/17 06:20 Neut % 70.0 % (42.0-75.0) 06/10/17 06:20 Lymph % 19.9 % (21.0-51.0) L 06/10/17 06:20 [place] % 6.3 % (0.0-13.0) 06/10/17 06:20 Eos % 3.2 % (0.9-2.9) H 06/10/17 06:20 Baso % 0.6 % (0.2-1.0) 06/10/17 06:20 Neut # 4.4 x10^3/uL (2.2-4.8) 06/10/17 06:20 Lymph # 1.2 X10^3/uL (1.3-2.9) L 06/10/17 06:20 [place] # 0.4 x10^3/uL (0.3-0.8) 06/10/17 06:20 Eos # 0.2 x10^3/uL (0.0-0.2) 06/10/17 06:20 Baso # 0.0 X10^3/uL (0.0-0.1) 06/10/17 06:20 Absolute Nucleated RBC 0.0 /100WBC 06/10/17 06:20 Sodium 134 mmol/L (136-145) L 06/10/17 06:23 Corrected Sodium 134 mmol/L (136-145) L 06/10/17 06:23 Potassium 3.5 mmol/L (3.5-5.1) 06/10/17 06:23 Chloride 101 mmol/L (98-107) 06/10/17 06:23 Carbon Dioxide 24.5 mmol/L (21-32) 06/10/17 06:23 BUN 9 mg/dL (7-18) 06/10/17 06:23 Creatinine 0.65 mg/dL (0.70-1.30) L 06/10/17 06:23 Est GFR (MDRD) Af Amer > 60 (>60) 06/10/17 06:23 Est GFR (MDRD) Non-Af > 60 (>60) 06/10/17 06:23 Glucose 114 mg/dL (65-99) H 06/10/17 06:23 Calcium 7.6 mg/dL (8.5-10.1) L 06/10/17 06:23 Corrected Calcium 9.0 mg/dL (8.5-10.1) 06/10/17 06:23 Total Bilirubin 0.50 mg/dL (0.2-1.0) 06/10/17 06:23 AST 24 Units/L (15-37) 06/10/17 06:23 ALT 26 Units/L (12-78) 06/10/17 06:23 Alkaline Phosphatase 72 Units/L (46-116) 06/10/17 06:23 Total Protein 5.4 g/dL (6.4-8.2) L 06/10/17 06:23 Albumin 2.3 g/dL (3.4-5.0) L 06/10/17 06:23 Globulin 3.1 g/dL (2.5-4.5) 06/10/17 06:23 Albumin/Globulin Ratio 0.7 Ratio (1.1-2.1) L 06/10/17 06:23 Amylase 11 Units/L (25-115) L 06/09/17 09:55 Lipase 76 Units/L (73-393) 06/09/17 09:55 Specimen Type Clean catch urine 06/09/17 12:21 Urine Color Yellow (YELLOW) 06/09/17 12:21 Urine Appearance Hazy (CLEAR) 06/09/17 12:21 Urine pH 5.0 (5.0 - 8.0) 06/09/17 12:21 Ur Specific [place] 1.030 (1.000-1.030) 06/09/17 12:21 Urine Protein 2+ (NEGATIVE) 06/09/17 12:21 Urine Glucose (UA) Negative (NEGATIVE) 06/09/17 12:21 Urine Ketones 4+ (NEGATIVE) 06/09/17 12:21 Urine Occult Blood 1+ (NEGATIVE) 06/09/17 12:21 Urine Nitrite Negative (NEGATIVE) 06/09/17 12:21 Urine Bilirubin 1+ (NEGATIVE) 06/09/17 12:21 Urine Urobilinogen 1+ (NORMAL) 06/09/17 12:21 Ur Leukocyte Esterase 1+ (NEGATIVE) 06/09/17 12:21 Urine RBC 0-2 /HPF (NONE SEEN) 06/09/17 12:21 Urine WBC 0-2 /HPF (NONE SEEN) 06/09/17 12:21 Ur Squamous Epith Cells Rare /HPF (NEGATIVE) 06/09/17 12:21 Urine Bacteria Trace /HPF (NEGATIVE) 06/09/17 12:21 Urine Mucus Few /HPF (NEGATIVE) 06/09/17 12:21 Ur Culture Indicated? No/not indicated 06/09/17 12:21 Stool Description 25g green liquid 06/09/17 11:30 Stool for White Cells Positive (NEGATIVE) A 06/09/17 10:35 Stl C. diff Tox B Gene Positive (NEGATIVE) A 06/09/17 10:36 Stl C. diff [id number] Negative (NEGATIVE) 06/09/17 10:36 Cryptosporid parvum Ag Negative (NEGATIVE) 06/09/17 11:30 E. histolytica Antigen Negative (NEGATIVE) 06/09/17 11:30 Giardia lamblia Ag Negative (NEGATIVE) 06/09/17 11:30 Influenza Type A (PCR) Negative (NEGATIVE) 06/09/17 10:01 Influenza Type B (PCR) Negative (NEGATIVE) 06/09/17 10:01 - XRAY XRAY Interpreted by: Radiologist XRAY Findings: REPORT DISCUSS WITH PATIENT AND FAMILY. - Diagnosis Discharge Problem: Dehydration, C. difficile colitis, C. difficile diarrhea Abdominal pain Qualifiers: Abdominal location: generalized Qualified Code(s): R10.84 - Generalized abdominal pain - Discharge Plan Disposition: ADMITTED INPATIENT Condition: Stable - Follow ups/Referrals - Instructions
[2017-06-09] MEDS ORDERED: ZOFRAN INJ 4 MG VIAL ONE ×2 (09:56→10:53)
[2017-06-09] MEDS ORDERED: NS 1000 ML 1,000 ML IV ONE (09:57)
[2017-06-09] MEDS ORDERED: ZOFRAN INJ 4 MG VIAL IVP ONE ×2 (09:57→10:54)
[2017-06-09] MEDS ORDERED: PEPCID 20 MG IV PREMIX* 20 MG/50 ML BAG IV ONE ×2 (10:11→10:56)
[2017-06-09 10:17] LABS: BASOPHILS % (AUTO) 0.3 % (0.2-1.0); EOSINOPHILS % (AUTO) 0.1 % (0.9-2.9); HEMATOCRIT 50.2 % (42.0-54.0); HEMOGLOBIN 17.6 g/dL (13.5-18.0); LYMPHOCYTES # (AUTO) 1.2 X10^3/uL (1.3-2.9); LYMPHOCYTES % (AUTO) 9.9 % (21.0-51.0); MEAN CORPUSCULAR HEMOGLOBIN 32.4 pg (27.0-34.0); MEAN CORPUSCULAR HGB CONC 35.1 g/dL (33.0-35.0); MEAN CORPUSCULAR VOLUME 92.4 fL (80.0-100.0); MEAN PLATELET VOLUME 10.1 fL (7.4-11.0); MONOCYTES # (AUTO) 0.4 x10^3/uL (0.3-0.8); MONOCYTES % (AUTO) 3.6 % (0.0-13.0); NEUTROPHILS # (AUTO) 10.5 x10^3/uL (2.2-4.8); NEUTROPHILS % (AUTO) 86.1 % (42.0-75.0); PLATELET COUNT 187 X10^3/uL (150.0-450.0); RED BLOOD COUNT 5.44 X10^6/uL (4.7-6.0); RED CELL DISTRIBUTION WIDTH 14.4 % (11.6-16.5); WHITE BLOOD COUNT 12.2 X10^3/uL (3.6-10.0)
[2017-06-09 10:20] LABS: ALANINE AMINOTRANSFERASE 40 Units/L (12-78); ALBUMIN 3.1 g/dL (3.4-5.0); ALKALINE PHOSPHATASE 123 Units/L (46-116); AMYLASE 11 Units/L (25-115); ASPARTATE AMINO TRANSFERASE 34 Units/L (15-37); BLOOD UREA NITROGEN 13 mg/dL (7-18); CARBON DIOXIDE 24.5 mmol/L (21-32); CHLORIDE 96 mmol/L (98-107); COR CA(FOR HYPOALB) 9.7 mg/dL (8.5-10.1); COR NA(FOR HYPERGLY) 135 mmol/L (136-145); CREATININE 0.79 mg/dL (0.70-1.30); LIPASE 76 Units/L (73-393); TOTAL PROTEIN 7.4 g/dL (6.4-8.2); eGFR BLACK RACES > 60 (>60); eGFR NON BLACK RACES > 60 (>60)
[2017-06-09 10:21] LABS: SODIUM 134 mmol/L (136-145)
--- NOTE | 2017-06-09 11:06 | CT ---
CT ABDOMEN AND PELVIS WITHOUT CONTRAST CLINICAL HISTORY: 36-year-old male with nausea, vomiting and diarrhea for 3 days. COMPARISON: CT abdomen pelvis 09/08/2015. TECHNIQUE: Multiple contiguous computed tomographic axial images of the abdomen and pelvis were obtai robe without the use of oral or intravenous contrast. Images were reformatted in the coronal and sagit carlitos planes. FINDINGS: Bibasilar subsegmental dependent atelectasis without effusion, consolidation or pneumothorax. No mass or nodule. Stable coronary stents with heart normal size and trace pericardial effusion present. Stable hepatomegaly with interval development of diffuse hepatic steatosis without focal mass lesion or biliary ductal dilatation. Main portal vein measures 1.45 cm, previously 1.34 cm on anatomically m atched imaging sequences. Spleen is unremarkable with stable small splenule. Pancreas and gallbladder are unremarkable. There is moderate volume simple ascites throughout the abdomen and within the pelv is. The adrenal glands and kidneys are normal bilaterally. There are no nephroureteral stones or perineph taya fluid collections. There is no evidence of hydroureteronephrosis and the ureters run in an unobst ructed course to a partially distended urinary bladder. The prostate, seminal vesicles, and external genitalia are within normal limits. The appendix is normal in appearance. Mildly thickened edematous bowel wall circumferentially extending from the cecum to the hepatic flexu re. The bowel is otherwise without obstruction or inflammation and there is no free fluid or free air within the peritoneal cavity. There are no pathologically enlarged lymph nodes in the abdomen or pe lvis. The remaining arteriovascular structures are within normal limits for a study without contrast. Soft tissues are normal. The osseous structures are intact without fracture or malalignment. IMPRESSION: 1. Interval development of diffuse hepatic steatosis is stable hepatomegaly and enlarged main portal vein with abdominal and pelvic ascites and edema within the bowel wall of the ascending colon/cecum. Findings most consistent with portal venous hypertension, correlate with serology for acute viral hep atitis component. Correlate clinically. Colitis within the differential but much less likely given la ck of inflammatory change. 2. Normal appendix. 3. Normal gallbladder. Reported By:
[2017-06-09 11:58] LABS: STOOL FOR WBC POSITIVE (NEGATIVE)
[2017-06-09 12:10] LABS: CRYPTOSPORIDIUM PARVUM ANTIGEN NEGATIVE (NEGATIVE); GIARDIA LAMBLIA ANTIGEN NEGATIVE (NEGATIVE)
[2017-06-09] MEDS ORDERED: PEPCID 20 MG IV PREMIX* 20 MG/50 ML BAG IV PRN (12:21)
[2017-06-09] MEDS ORDERED: ZOFRAN INJ 4 MG VIAL IVP PRN (12:25)
[2017-06-09 12:26] LABS: BILIRUBIN,URINE 1+ (NEGATIVE); BLOOD/HEMOGLOBIN,URINE 1+ (NEGATIVE); GLUCOSE, URINE NEGATIVE (NEGATIVE); KETONES,URINE 4+ (NEGATIVE); LEUKOCYTE ESTERASE ,URINE 1+ (NEGATIVE); NITRITES,URINE NEGATIVE (NEGATIVE); PROTEIN,URINE 2+ (NEGATIVE); UROBILINOGEN,URINE 1+ (NORMAL)
[2017-06-09] MEDS ORDERED: PATIENT'S HOME MEDICATION (Albuterol Sulfate [Proair Hfa] 1 INH) INH PRN (12:27)
[2017-06-09] MEDS ORDERED: ALPRAZOLAM PO PRN (12:27)
[2017-06-09 12:34] LABS: APPEARANCE,URINE HAZY (CLEAR); BACTERIA,URINE TRACE /HPF (NEGATIVE); COLOR,URINE YELLOW (YELLOW); MUCUS,URINE FEW /HPF (NEGATIVE); RBC,URINE 0-2 /HPF (NONE SEEN); SQUAMOUS EPITHELIAL CELL,UR RARE /HPF (NEGATIVE)
[2017-06-09] MEDS: NS 1000 ML 1,000 ML IV SCH ×2 (13:01→22:50)
[2017-06-09] MEDS: PROVENTIL NEB TX 0.083% 2.5MG/ 3ML NEB SCH ×3 (13:17→20:56)
[2017-06-09] MEDS: METHADONE HCL PO SCH ×3 (13:51→18:07)
[2017-06-09] MEDS: FLAGYL IV PREMIX 500 MG BAG 500 MG/100 ML BAG IV SCH ×2 (13:52→21:32)
[2017-06-09] MEDS ORDERED: PHARMACY CONSULT - VANCOMYCIN XX SCH (14:00)
[2017-06-09] MEDS: VANCOMYCIN HCL 1 GM VIAL 1 GM in D5W 250 ML IV 250 ML IV SCH ×2 (14:59→22:49)
[2017-06-09] MEDS: XANAX PO PRN (18:11)
[2017-06-09] MEDS: DILAUDID INJ IVP PRN (21:31)
[2017-06-09] MEDS: COREG TAB 6.25 MG PO SCH (21:32)
[2017-06-10] MEDS: METHADONE HCL PO SCH ×5 (00:08→21:06)
[2017-06-10] MEDS: DILAUDID INJ IVP PRN (02:41)
[2017-06-10] MEDS: PROVENTIL NEB TX 0.083% 2.5MG/ 3ML NEB SCH ×4 (04:59→17:00)
[2017-06-10] MEDS: VANCOMYCIN HCL 1 GM VIAL 1 GM in D5W 250 ML IV 250 ML IV SCH ×3 (06:03→21:07)
[2017-06-10 06:45] LABS: BASOPHILS % (AUTO) 0.6 % (0.2-1.0); EOSINOPHILS # (AUTO) 0.2 x10^3/uL (0.0-0.2); EOSINOPHILS % (AUTO) 3.2 % (0.9-2.9); HEMATOCRIT 38.3 % (42.0-54.0); LYMPHOCYTES # (AUTO) 1.2 X10^3/uL (1.3-2.9); LYMPHOCYTES % (AUTO) 19.9 % (21.0-51.0); MEAN CORPUSCULAR HEMOGLOBIN 32.8 pg (27.0-34.0); MEAN CORPUSCULAR HGB CONC 35.1 g/dL (33.0-35.0); MEAN CORPUSCULAR VOLUME 93.4 fL (80.0-100.0); MEAN PLATELET VOLUME 10.2 fL (7.4-11.0); MONOCYTES # (AUTO) 0.4 x10^3/uL (0.3-0.8); MONOCYTES % (AUTO) 6.3 % (0.0-13.0); NEUTROPHILS # (AUTO) 4.4 x10^3/uL (2.2-4.8); PLATELET COUNT 117 X10^3/uL (150.0-450.0); RED CELL DISTRIBUTION WIDTH 13.7 % (11.6-16.5); WHITE BLOOD COUNT 6.3 X10^3/uL (3.6-10.0)
[2017-06-10 06:45] LABS: ALANINE AMINOTRANSFERASE 26 Units/L (12-78); ALBUMIN 2.3 g/dL (3.4-5.0); ALKALINE PHOSPHATASE 72 Units/L (46-116); ASPARTATE AMINO TRANSFERASE 24 Units/L (15-37); BLOOD UREA NITROGEN 9 mg/dL (7-18); CALCIUM 7.6 mg/dL (8.5-10.1); CARBON DIOXIDE 24.5 mmol/L (21-32); CHLORIDE 101 mmol/L (98-107); COR NA(FOR HYPERGLY) 134 mmol/L (136-145); CREATININE 0.65 mg/dL (0.70-1.30); SODIUM 134 mmol/L (136-145); TOTAL PROTEIN 5.4 g/dL (6.4-8.2); eGFR BLACK RACES > 60 (>60); eGFR NON BLACK RACES > 60 (>60)
[2017-06-10 06:47] LABS: HEMOGLOBIN 13.4 g/dL (13.5-18.0)
[2017-06-10] MEDS: COREG TAB 6.25 MG PO SCH ×2 (09:10→21:06)
[2017-06-10] MEDS: FLAGYL IV PREMIX 500 MG BAG 500 MG/100 ML BAG IV SCH ×2 (09:11→21:06)
[2017-06-10] MEDS: XANAX PO PRN ×3 (09:12→21:08)
[2017-06-10] MEDS: PLAVIX PO SCH (09:12)
[2017-06-10] MEDS ORDERED: MYLICON TAB 80 MG CHEW PO PRN (09:31)
[2017-06-10] MEDS: NS 1000 ML 1,000 ML IV SCH ×2 (09:35→15:04)
[2017-06-10 13:27] LABS: CREATININE 0.71 mg/dL (0.70-1.30); VANCOMYCIN,TROUGH 12.8 ug/mL (15-20)
[2017-06-10] MEDS ORDERED: MOTRIN TAB 800 MG PO PRN (13:50)
[2017-06-10] MEDS ORDERED: MAALOX or MYLANTA PO PRN (13:50)
[2017-06-10] MEDS ORDERED: KAOPECTATE (NEW FORMULA) PO PRN (13:50)
[2017-06-10] MEDS ORDERED: MILK OF MAGNESIA PO PRN (13:50)
[2017-06-10] MEDS: PHARMACY COMMENT IV SCH (14:02)
--- NOTE | 2017-06-10 14:24 | DR.H&P ---
H&P - History & Physical for Day of: H&P Date: 06/09/17 - Chief Complaint Chief Complaint: N/V/D, ABDOMINAL PAIN, WEAKNESS - Allergies Allergies/Adverse Reactions: Allergies Allergy/AdvReac Type Severity Reaction Status Date / Time Penicillins Allergy Verified 04/22/17 09:56 - History of Present Illness History of Present Illness: 36 WM ER ADMISSION WITH ABDMONIAL PAIN N/V FEVER WEAKNESS. PT WAS POSITIVE FOR C DIFF, PT ADMITTED - Past Medical History Past Medical History: COPD, Coronary Artery Disease, [place] - Past Surgical History Surgical History: Angioplasty/Stents, Ortho Surgery - Family History Family Medical History: Diabetes Mellitus, Cancer, Coronary Artery Disease, Heart Failure, Hypertension - Social History Does patient currently use any type of tobacco product: Yes Have you used tobacco products in the last 12 months: Yes Type of Tobacco Use: Cigarettes How many years tobacco product used: 15 Does any household member use tobacco: No Alcohol Use: DAILY Drug Use: Marijuana - Medications Home Medications: Albuterol Sulfate [Proair Hfa] 1 inh INH Q4-6H PRN 06/09/17 [History Confirmed 06/09/17] Alprazolam [Xanax 1 mg] 1 mg PO TID 06/09/17 [History Confirmed 06/09/17] Aspirin EC [ASPIRIN EC 81 MG *] 1 tab PO HS 06/09/17 [History Confirmed 06/09/17 ] Dicyclomine HCl [Bentyl tab 20 mg] 20 mg PO QID 06/09/17 [History Confirmed ] Multivitamin [Men's Multi-Vitamin] 1 tab PO DAILY 06/09/17 [History Confirmed ] Ondansetron HCl [Ondansetron HCl] 1 tab PO TID 06/09/17 [History Confirmed 06/09] Spironolactone [ALDACTONE 25 MG *] 12.5 mg PO DAILY 06/09/17 [History Confirmed 06/09/17] Ubidecarenone [Coenzyme Q-10] 100 mg PO DAILY 06/09/17 [History Confirmed ] - Review of Systems Constitutional: Weakness Eyes: No Symptoms Reported ENT: No Symptoms Reported Respiratory: No Symptoms Reported Cardiovascular: No Symptoms Reported Gastrointestinal: Nausea, Vomiting, Abdominal Pain, Diarrhea Genitourinary: No Symptoms Reported Musculoskeletal: Back Pain, Leg Pain Skin: No Symptoms Reported Neurological: No Symptoms Reported - Physical Exam Vital Signs: Temperature 97 F Pulse Rate [Right Brachial] 69 Pulse Rate 78 Respiratory Rate 16 Blood Pressure [Left Arm] 108/82 Blood Pressure 118/66 O2 Sat by Pulse Oximetry 100 Oriented: Normal Eyes: Normal Ear: Normal Nose: Normal Throat: Normal Respiratory: RLL Diminished, LLL Diminished Cardiovascular: Normal : Normal Auscultation: Bowel Sounds: Normal Palpation: Normal Tenderness: Diffuse Skin: Decreased Turgur Musculoskeletal: Right, Leg, Ankle Psychiatric: Anxiety Affect: Anxious Speech Pattern: Clear, Appropriate - Assessment/Plan (1) C. difficile colitis Status: Acute Plan: ADMIT, IV HYDRATION. PAIN AND NAUSEA CONTROL. IV ATBX. DAILY LABS, RESUME HOME MEDS (2) C. difficile diarrhea Status: Acute (3) CAD (coronary artery disease) Qualifiers: Coronary Disease-Associated Artery/Lesion type: unspecified vessel or lesion type [place] vs. transplanted heart: [place] heart Associated angina: without angina Qualified Code(s): I25.10 - Atherosclerotic heart disease of [place] coronary artery without angina pectoris Status: Chronic
[2017-06-10 14:43] LABS: BASOPHILS % (AUTO) 0.2 % (0.2-1.0); EOSINOPHILS # (AUTO) 0.3 x10^3/uL (0.0-0.2); EOSINOPHILS % (AUTO) 5.1 % (0.9-2.9); HEMATOCRIT 38.3 % (42.0-54.0); HEMOGLOBIN 13.4 g/dL (13.5-18.0); LYMPHOCYTES # (AUTO) 1.4 X10^3/uL (1.3-2.9); MEAN CORPUSCULAR HEMOGLOBIN 32.6 pg (27.0-34.0); MEAN CORPUSCULAR HGB CONC 35.1 g/dL (33.0-35.0); MEAN CORPUSCULAR VOLUME 93.1 fL (80.0-100.0); MEAN PLATELET VOLUME 10.1 fL (7.4-11.0); MONOCYTES # (AUTO) 0.5 x10^3/uL (0.3-0.8); MONOCYTES % (AUTO) 7.5 % (0.0-13.0); NEUTROPHILS # (AUTO) 4.3 x10^3/uL (2.2-4.8); NEUTROPHILS % (AUTO) 65.2 % (42.0-75.0); PLATELET COUNT 112 X10^3/uL (150.0-450.0); RED BLOOD COUNT 4.11 X10^6/uL (4.7-6.0); WHITE BLOOD COUNT 6.5 X10^3/uL (3.6-10.0)
--- NOTE | 2017-06-10 14:55 | RAD ---
STUDY: CHEST, TWO VIEWS History: Nausea, vomiting, diarrhea for 3 days. Abdominal pain. Comparison: April 22, 2017. Findings: The trachea is midline. The lungs are clear of consolidation, significant infiltrate, effusion, or pn eumothorax. The cardiac silhouette, mediastinum and osseous structures are unremarkable. IMPRESSION: 1. No evidence of acute cardiopulmonary abnormality. Reported By:
[2017-06-10] MEDS: MAGNESIUM SULFATE 50% INJ IM SCH ×2 (14:59→21:07)
[2017-06-11] MEDS: MAGNESIUM SULFATE 50% INJ IM SCH ×2 (05:24→13:47)
[2017-06-11] MEDS: NS 1000 ML 1,000 ML IV SCH ×4 (05:52→20:00)
[2017-06-11] MEDS: METHADONE HCL PO SCH ×3 (05:53→21:36)
[2017-06-11] MEDS: VANCOMYCIN HCL 1 GM VIAL 1 GM in D5W 250 ML IV 250 ML IV SCH ×3 (05:54→22:55)
[2017-06-11] MEDS: XANAX PO PRN ×2 (08:48→21:37)
[2017-06-11] MEDS: FLAGYL IV PREMIX 500 MG BAG 500 MG/100 ML BAG IV SCH ×2 (08:57→21:36)
[2017-06-11] MEDS: COREG TAB 6.25 MG PO SCH ×2 (08:57→21:37)
[2017-06-11] MEDS: PLAVIX PO SCH (08:59)
[2017-06-11] MEDS ORDERED: THIAMINE HCL INJ IM SCH (09:00)
[2017-06-11] MEDS: PROVENTIL NEB TX 0.083% 2.5MG/ 3ML NEB SCH ×4 (10:22→20:20)
[2017-06-11] MEDS: PHARMACY COMMENT IV SCH (13:47)
[2017-06-11] MEDS: SOLU-Medrol 40 MG VIAL IVP SCH ×2 (16:14→21:37)
[2017-06-12] MEDS: SOLU-Medrol 40 MG VIAL IVP SCH ×2 (05:01→13:23)
[2017-06-12] MEDS: METHADONE HCL PO SCH ×2 (05:03→13:23)
[2017-06-12] MEDS: XANAX PO PRN ×2 (05:03→13:23)
[2017-06-12 06:07] LABS: BASOPHILS % (AUTO) 0.1 % (0.2-1.0); HEMATOCRIT 36.1 % (42.0-54.0); HEMOGLOBIN 12.7 g/dL (13.5-18.0); LYMPHOCYTES # (AUTO) 0.5 X10^3/uL (1.3-2.9); LYMPHOCYTES % (AUTO) 15.3 % (21.0-51.0); MEAN CORPUSCULAR HEMOGLOBIN 32.8 pg (27.0-34.0); MEAN CORPUSCULAR HGB CONC 35.2 g/dL (33.0-35.0); MEAN CORPUSCULAR VOLUME 93.2 fL (80.0-100.0); MEAN PLATELET VOLUME 10.3 fL (7.4-11.0); MONOCYTES # (AUTO) 0.1 x10^3/uL (0.3-0.8); MONOCYTES % (AUTO) 3.8 % (0.0-13.0); NEUTROPHILS # (AUTO) 2.6 x10^3/uL (2.2-4.8); NEUTROPHILS % (AUTO) 80.8 % (42.0-75.0); PLATELET COUNT 112 X10^3/uL (150.0-450.0); RED BLOOD COUNT 3.87 X10^6/uL (4.7-6.0); WHITE BLOOD COUNT 3.2 X10^3/uL (3.6-10.0)
[2017-06-12 06:48] LABS: CREATININE 0.63 mg/dL (0.70-1.30); VANCOMYCIN,TROUGH 16.2 ug/mL (15-20)
[2017-06-12 06:54] LABS: ALANINE AMINOTRANSFERASE 55 Units/L (12-78); ALBUMIN 2.9 g/dL (3.4-5.0); ALKALINE PHOSPHATASE 75 Units/L (46-116); ASPARTATE AMINO TRANSFERASE 35 Units/L (15-37); BLOOD UREA NITROGEN 3 mg/dL (7-18); CALCIUM 8.3 mg/dL (8.5-10.1); CARBON DIOXIDE 25.4 mmol/L (21-32); CHLORIDE 101 mmol/L (98-107); COR CA(FOR HYPOALB) 9.2 mg/dL (8.5-10.1); COR NA(FOR HYPERGLY) 137 mmol/L (136-145); CREATININE 0.64 mg/dL (0.70-1.30); SODIUM 136 mmol/L (136-145); TOTAL PROTEIN 6.2 g/dL (6.4-8.2); eGFR BLACK RACES > 60 (>60); eGFR NON BLACK RACES > 60 (>60)
[2017-06-12] MEDS: VANCOMYCIN HCL 1 GM VIAL 1 GM in D5W 250 ML IV 250 ML IV SCH ×2 (07:23→13:23)
[2017-06-12] MEDS: PROVENTIL NEB TX 0.083% 2.5MG/ 3ML NEB SCH ×2 (08:40→12:30)
[2017-06-12] MEDS: COREG TAB 6.25 MG PO SCH (08:46)
[2017-06-12] MEDS: FLAGYL IV PREMIX 500 MG BAG 500 MG/100 ML BAG IV SCH (08:47)
[2017-06-12] MEDS: PLAVIX PO SCH (08:47)
[2017-06-12] MEDS: PHARMACY COMMENT IV SCH (13:37)
[2017-06-12] MEDS: NS 1000 ML 1,000 ML IV SCH (13:37)
[2017-06-12 16:31] VITALS: BP 115/74
== END 2017-06-12 16:00 | disposition home or self-care (01) ==
LOC: ER 09:34 → OBS 12:04
PROVIDERS: ADMIT Internal Medicine; ATTEND Internal Medicine
DX: K52.89 Other specified noninfective gastroenteritis and colitis (principal); R10.84 Generalized abdominal pain; I25.10 Atherosclerotic heart disease of native coronary artery without angina pectoris; G89.4 Chronic pain syndrome; E86.0 Dehydration; Z86.59 Personal history of other mental and behavioral disorders; E87.1 Hypo-osmolality and hyponatremia; R26.81 Unsteadiness on feet
CPT/HCPCS: 36415; 71046; 74176; 80053; 80202; 80307; 81001; 82150; 82565; 83630; 83690; 85025; 87045; 87328; 87329; 87336; 87427; 87493; 87502; 87899; 94640; 94760; 96365; 96367; 96374; 96375; 99284; 99285; A4222; G8987; G8988; S0028; S0030; S0109; G0378; G6040; J1170; J2405; J2920; J3370; J3475; J7613

== ENCOUNTER → 2017-07-14 | Outpatient (CLI) | payer OTHER, MEDICAID ==
[~2017-07-14] MED LIST: NS 100 ML IV 100 ML IV ONE
--- NOTE | 2017-07-14 13:22 | CT ---
Examination: CT of the chest with and without contrast. Clinical history: COPD with EX. CAD, [place], hypertension, stents. Technique: Multiple axial images were obtained from the lung apices down to the lung bases, prior to and following the intravenous administration of contrast. Dose reduction techniques including automat ed exposure control (AEC) and adjustment of mA and kV were utilized. Comparison: 04/11/2017. Findings: The thyroid gland is unremarkable. The heart is normal in size. Coronary artery calcifications are noted, suggestive of coronary artery disease. No pericardial effusion is noted. The thoracic aorta is normal in caliber. The remainder of the great vessels are within normal limits. The previously seen patchy areas of confluent opacity in the lingula of the left upper lobe all have markedly improved, with minimal residual opacity remaining, possibly due to scarring. The lungs are o therwise clear. Stable small lymph nodes are present in the mediastinum, axilla and adriana bilaterally. No enlarged lym ph nodes, by CT criteria, are noted in the mediastinum, adriana or axilla bilaterally. No central obstructing bronchial lesion is noted. No pneumothorax or pleural effusion is noted. A stable small accessory spleen is seen at the medial aspect of the spleen. The remainder of the visu alized portion of the upper abdomen is unremarkable. Degenerative changes are noted in the spine. Vertebral body endplate deformities, consistent with [place] morl's nodes, are present at multiple levels in the thoracic spine. No acute osseous abnormality is n oted. Impression: 1. The previously seen patchy areas of confluent opacity in the lingula of the left upper lobe have m arkedly improved, with minimal residual opacity remaining, possibly due to scarring. The lungs are ot herwise clear. 2. Coronary artery calcifications are noted, suggestive of coronary artery disease. Reported By:
== END ==
LOC: RAD 11:08
PROVIDERS: ATTEND Family Medicine
DX: J44.1 Chronic obstructive pulmonary disease with (acute) exacerbation (principal)
CPT/HCPCS: 71270; A4222

== ENCOUNTER → 2017-08-05 | Outpatient (CLI) | payer OTHER, MEDICAID ==
--- NOTE | 2017-08-05 15:18 | RAD ---
HISTORY: Shortness of breath Study: Two views the chest Comparison: June 10, 2017 Findings: The trachea is midline. The cardiac silhouette is unremarkable. The lungs are clear without focal i nfiltrate or effusion. IMPRESSION: 1. No acute cardiopulmonary disease. Reported By:
== END ==
LOC: LAB 12:45
PROVIDERS: ATTEND Family Medicine
DX: J44.9 Chronic obstructive pulmonary disease, unspecified (principal)
CPT/HCPCS: 71046